=== PATIENT | male | born 1975 | race Caucasian/White ===

== ENCOUNTER 2017-06-14 15:14 | Emergency (ER) | payer OTHER ==
[~2017-06-14] VITALS: Ht 182.9 cm; Wt 99.8 kg
[~2017-06-14 15:14] MED LIST: NICORETTE2 MG BC; [UNRECOGNIZED DRUG - OTHER] PO
[2017-06-14] MEDS ORDERED: NORCO 5-325 TA1 EACH PO (16:03)
[2017-06-14] MEDS ORDERED: AUGMENTIN 875875 MG PO (16:05)
== END 2017-06-14 16:36 | disposition home or self-care (01) ==
LOC: ER 15:14
DX: S61.411A Laceration without foreign body of right hand, initial encounter (principal); F17.210 Nicotine dependence, cigarettes, uncomplicated; F10.99 Alcohol use, unspecified with unspecified alcohol-induced disorder; W54.0XXA Bitten by dog, initial encounter; Y93.89 Activity, other specified; Y92.89 Other specified places as the place of occurrence of the external cause; Y99.8 Other external cause status

== ENCOUNTER 2017-12-19 08:40 | Emergency (ER) | payer OTHER ==
[~2017-12-19] VITALS: Ht 182.9 cm; Wt 88.5 kg
--- NOTE | ~2017-12-19 | EKG ---
[address] [place] [address] ELECTROCARDIOGRAM REPORT Name: LUIS SANCHEZ Room #: 170-9 ADM IN M.R.#: [id number] Admission: 12/19/17 Attend Phys: Joseph Blunt Discharge: Date of : 77 Report #: [id number] THIS REPORT FOR: //name// [facility] ED Test Date: 2017-12-19 Test Time: 09:21:54 Pat Name: LUIS SANCHEZ Department: Room: 170 Gender: M Applications System Analyst: MARYANN : 1975 Requested By: Issa Harvey Order Number: [id number] MD: Mario Cano Measurements Intervals [place] Rate: 77 P: 14 OR: 155 QRS: 1 QRSD: 104 T: 23 QT: 374 QTc: 424 Interpretive Statements Sinus rhythm RSR' in V1 or V2, right VCD or RVH Baseline wander in lead(s) V2 No previous ECG available for comparison Electronically Signed On 12-19-2017 15:42:47 [employer] by Mario Cano [email or web address] <ELECTRONICALLY SIGNED> By: Mario Cano MD 12/19/17 1542 0 0 Mario Cano MD /RAZIA
[~2017-12-19 08:40] MED LIST changes: +AUGMENTIN 875875 MG PO; +NORCO 5-325 TA1 EACH PO
[2017-12-19 08:45] VITALS: BP 111/82
[2017-12-19] MEDS ORDERED: HYDROXYZINE HCL25 M1 PO (09:15)
[2017-12-19] MEDS ORDERED: XANAX 0.5 MG0.5 MG PO (09:15)
[2017-12-19] MEDS ORDERED: ZOLOFT50 MG PO (09:15)
[2017-12-19 09:32] LABS: HEMATOCRIT 43.4 % (42.0-52.0); HEMOGLOBIN 14.6 gm/dL (14.0-18.0); MCH 28.6 pg (26.0-34.0); MCHC 33.5 g/dL (28.0-37.0); MCV 85.3 fL (80.0-100.0); RBC 5.09 mil/uL (4.50-6.00); RDW 14.1 % (10.5-14.5); WBC 6.9 thou/uL (4.0-11.0)
[2017-12-19 09:43] LABS: ANION GAP 10 mmol/L (7-16); BUN 14 mg/dL (7-18); CALCIUM 9.6 mg/dL (8.5-10.1); CHLORIDE 101 mmol/L (98-107); CO2 26 mmol/L (21-32); GLUCOSE 129 mg/dL (74-106); POTASSIUM 4.5 mmol/L (3.5-5.1); SODIUM 137 mmol/L (136-145)
[2017-12-19 09:46] LABS: ALBUMIN 3.8 g/dL (3.4-5.0); MAGNESIUM 1.9 mg/dL (1.8-2.4); SGOT 56 U/L (15-37); SGPT 118 U/L (30-65); TOTAL BILIRUBIN 1.1 mg/dL (<0.1-1.0); TOTAL PROTEIN 7.1 g/dL (6.4-8.2); TROPONIN-I < 0.04 ng/mL (<0.06)
[2017-12-19 10:48] VITALS: BP 127/95
[2017-12-19 12:33] VITALS: BP 122/81
== END 2017-12-19 12:38 | disposition short-term general hospital (02) ==
LOC: ER 08:40 → EROBS 10:37
PROVIDERS: Emergency Medicine
DX: R55 Syncope and collapse (principal); R41.82 Altered mental status, unspecified; F17.210 Nicotine dependence, cigarettes, uncomplicated